=== PATIENT | male | born 1995 ===

== ENCOUNTER 2017-08-30 09:17 | Emergency (ER) | payer OTHER ==
[2017-08-30 09:32] VITALS: BP 120/84
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
--- NOTE | 2017-08-30 10:25 | RAD ---
INDICATION: Head injury, headache and lethargy. COMPARISON: There are no prior studies available for comparison. TECHNIQUE: Contiguous axial sections of the brain were obtained from the skull base to the vertex without contrast. FINDINGS: The ventricles, cisterns and sulci are within normal limits. No significant focal abnormality or mass effect is seen. There is no evidence for hemorrhage. No significant focal osseous abnormality is seen. The visualized portion of the paranasal sinuses and mastoid air cells appear clear. IMPRESSION: NO EVIDENCE FOR ACUTE INTRACRANIAL ABNORMALITY.
== END 2017-08-30 10:53 | disposition home or self-care (01) ==
LOC: UCEAST 09:17
DX: S06.0X0A Concussion without loss of consciousness, initial encounter (principal); W03.XXXA Other fall on same level due to collision with another person, initial encounter; Y93.63 Activity, rugby; Y92.39 Other specified sports and athletic area as the place of occurrence of the external cause; R51 Headache
CPT/HCPCS: 70450; 99201; G0463